=== PATIENT | female | born 1995 | race Caucasian/White ===

== ENCOUNTER 2017-01-25 02:06 | Emergency (ER) | payer OTHER ==
--- NOTE | 2017-01-25 02:51 | ED NURSING NOTES ---
Clinical Report - Nurses [facility] [address] [place] [place] [address] 01/25/2017 2:10 Patient: VALE MONTERO TRIAGE Acuity: LEVEL 4. Chief Complaint: SKIN RASH. Alert. JOI COMA SCORE: [place] Coma Scale: 15- eyes open spontaneously (4); best verbal response- oriented x 4 (5); best motor response- obeys commands (6). --02:25 Parker Frazier R.N. 02:18 01/25/17. BP: 121/66. HR: 75. RR: 20 (regular and unlabored). O2 saturation: 100% on room air. Temp: 98.2 F (oral). Pain level now: 0/10. --02:25 Parker Frazier R.N. Weight: 97 kg stated. Height/Length: 68 inches Per Patient. BMI: 32.5. --02:21 Parker Frazier R.N. Medications LaMICtal Oral. --02:19 Parker Frazier R.N. Vitamins Oral. --02:19 Parker Frazier R.N. Allergies Benadryl. Klonidine. Triamenic. --02:18 Parker Frazier R.N. Bactrim. --02:19 Parker Frazier R.N. Penicillin. Severe (Apnea) --02:19 Parker Frazier R.N. The following entry was struck and corrected by Parker Frazier R.N., 02:19 (01/25/17) Reason for correction - other(correction). <<STRICKEN ENTRY-- Penicillin. --02:19 Parker Frazier R.N. --END STRIKE>>. History Reported as generalized in location. Onset. (Febuary). It is described as itchy. Not painful. PAST MEDICAL HX: Last normal menstrual period- 09/17/16. Currently : 19 weeks. SOCIAL HX: Heavy tobacco smoker (cigarette)- 1 pack per day. No alcohol use or drug use. ( Denies HI/SI, states that she feels safe at home). SELF HARM ASSESSMENT: A self harm assessment was performed. FALL RISK ASSESSMENT: Fall risk assessment completed. No fall risk identified. NUTRITIONAL RISK ASSESSMENT: The nutritional risk assessment revealed no deficiencies. FUNCTIONAL ASSESSMENT: Functional assessment: no impairments noted. LEARNING NEEDS ASSESSMENT: The learning needs assessment revealed no barriers. --02:25 Parker Frazier R.N. PROBLEMS: Bipolar Disorder. LNMP - Last Normal Menstrual Period. --02: Parker Frazier R.N. ADDITIONAL SURGERIES: Oral Surgery. --02:20 Parker Frazier R.N. Interventions ID band on patient. To treatment room. --02: Parker Frazier R.N. PHYSICAL ASSESSMENT Ambulatory to room. ( Patient has small raised bumps on her stomach and hands, and is also generalized. She states having it worst on hands and trunk. Most of them are not reddened). GENERAL / NEURO / PSYCH: Alert. Oriented X 4. HEENT: Mucous membranes are pink. RESPIRATORY: Respirations not labored. CVS: Capillary refill less than 2 seconds. SKIN: Skin is intact, warm and dry. --02:28 Parker Frazier R.N. NURSING PROGRESS NOTES Patient gowned. Reassurance given. Two patient identifiers checked. Call light placed in reach. Side rails up x 1. Bed placed in lowest position. Brakes of bed on. Patient ready for evaluation- chart flagged. Patient waiting for evaluation. --02:28 Parker Frazier R.N. DISPOSITION / DISCHARGE Departure time: 03:04. Condition at departure: stable. No learning barriers present. Discharge instructions provided and reviewed with the patient. Reviewed warnings. Reviewed medication(s) side effects, precautions, dosing and course information. Prescription(s) given to the patient. Treatments reviewed. Reviewed referrals for followup. Patient verbalized understanding. Written instructions provided in Nepalese. The patient was discharged home and accompanied by family. She left the Emergency Department ambulatory and via private vehicle. Patient driving. --03:04 Parker Frazier R.N. 02:18 01/25/17. BP: 121/66. HR: 75. RR: 20 (regular and unlabored). O2 saturation: 100% on room air. Temp: 98.2 F (oral). Pain level now: 0/10. --03:04 Parker Frazier R.N. Locked/Released at 01/25/2017 3:04 by Parker Frazier R.N.
--- NOTE | 2017-01-25 02:51 | ED CLINICAL REPORT ---
Clinical Report - Physicians/Mid Levels [facility] [address] [place] [address] 01/25/2017 2:10 Patient: VALE MONTERO Time Seen: 02:28 Jan 25 2017. Arrived- By private vehicle. Historian- patient. CPT: ER phys charges level 3 (#[id number]). HISTORY OF PRESENT ILLNESS Chief Complaint: SKIN RASH. This started about 3 months [employer] and is still present. It is described as itchy. It has been generalized in location. No cause has been identified. Similar symptoms previously: None. Recent medical care: Not recently seen/assessed. REVIEW OF SYSTEMS No fever, chills, sore throat, cough or difficulty breathing. No hoarseness, lump in throat, enlarged lymph nodes, chest pain or abdominal pain. No nausea, diarrhea, difficulty with urination, genital lesions or joint pain. All systems otherwise negative, except as recorded above. PAST HISTORY : Last normal menstrual period- 09/17/16. Currently : 19 weeks. Bipolar Disorder. LNMP - Last Normal Menstrual Period. - ADDITIONAL SURGERIES: Oral Surgery. Medications: Vitamins Oral. LaMICtal Oral. Allergies: Bactrim. Benadryl. Klonidine. Penicillin. Severe (Apnea) Triamenic. SOCIAL HISTORY Heavy tobacco smoker (cigarette)- 1 pack per day. No alcohol use or drug use. ADDITIONAL NOTES The nursing notes have been reviewed. PHYSICAL EXAM Vital Signs: 01/25/2017 02:18 BP: 121/66. HR: 75. RR: 20. O2 saturation: 100%. Temp: 98.2 F. Pain level now: 0/10. Appearance: Alert. No acute distress. Eyes: Pupils equal, round and reactive to light. Conjunctivae and eyelids normal. ENT: Ears normal. Nose normal. Pharynx normal. Neck: Neck supple. CVS: Normal heart rate and rhythm. Heart sounds normal. Respiratory: No respiratory distress. Breath sounds normal. Chest nontender. Abdomen: Nontender. No organomegaly. Skin: No tender indurated area. No cellulitis. Rash present on the chest (upper). Extremities: Normal external inspection. Extremities nontender. Neuro: Oriented X 3. No motor deficit. No sensory deficit. PROGRESS AND PROCEDURES Course of Care: Rash distribution appears like a contact dermatitis. Patient/family counseled. Disposition: Discharged. Condition: stable. CLINICAL IMPRESSION Contact dermatitis. INSTRUCTIONS Warnings: Further evaluation is necessary. GENERAL WARNINGS: Return or contact your physician immediately if your condition worsens or changes unexpectedly, if not improving as expected, or if other problems arise. Your Current Medications: CONTINUE TAKING THE FOLLOWING MEDICATIONS: LaMICtal Oral. Vitamins Oral. Prescription Medications: Hydrocortisone 2.5% cream: apply to affected areas four times daily as needed for itching or rash, until symptoms improve. Dispense thirty (30) grams. No refills. Substitution is permissible. Follow-up: Follow up with your doctor in one week. Call for an appointment. Understanding of the discharge instructions verbalized by patient. (Electronically signed by Venkat Gregory MD 01/29/2017 21:00)
--- NOTE | 2017-01-25 02:51 | ED CLINICAL REPORT ---
Clinical Report - Physicians/Mid Levels [facility] [address] [place] [address] 01/25/2017 2:10 Patient: VALE MONTERO Time Seen: 02:28 Jan 25 2017. Arrived- By private vehicle. Historian- patient. CPT: ER phys charges level 3 (#[id number]). HISTORY OF PRESENT ILLNESS Chief Complaint: SKIN RASH. 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 It is described as itchy. It has been generalized in location. No cause has been identified. Similar symptoms previously: None. Recent medical care: Not recently seen/assessed. REVIEW OF SYSTEMS No fever, chills, sore throat, cough or difficulty breathing. No hoarseness, lump in throat, enlarged lymph nodes, chest pain or abdominal pain. No nausea, diarrhea, difficulty with urination, genital lesions or joint pain. All systems otherwise negative, except as recorded above. PAST HISTORY : Last normal menstrual period- 09/17/16. Currently : 19 weeks. Bipolar Disorder. LNMP - Last Normal Menstrual Period. - ADDITIONAL SURGERIES: Oral Surgery. Medications: Vitamins Oral. LaMICtal Oral. Allergies: Bactrim. Benadryl. Klonidine. Penicillin. Severe (Apnea) Triamenic. SOCIAL HISTORY Heavy tobacco smoker (cigarette)- 1 pack per day. No alcohol use or drug use. ADDITIONAL NOTES The nursing notes have been reviewed. PHYSICAL EXAM Vital Signs: 01/25/2017 02:18 BP: 121/66. HR: 75. RR: 20. O2 saturation: 100%. Temp: 98.2 F. Pain level now: 0/10. Appearance: Alert. No acute distress. Eyes: Pupils equal, round and reactive to light. Conjunctivae and eyelids normal. ENT: Ears normal. Nose normal. Pharynx normal. Neck: Neck supple. CVS: Normal heart rate and rhythm. Heart sounds normal. Respiratory: No respiratory distress. Breath sounds normal. Chest nontender. Abdomen: Nontender. No organomegaly. Skin: No tender indurated area. No cellulitis. Rash present on the chest (upper). Extremities: Normal external inspection. Extremities nontender. Neuro: Oriented X 3. No motor deficit. No sensory deficit. PROGRESS AND PROCEDURES Course of Care: Rash distribution appears like a contact dermatitis. Patient/family counseled. Disposition: Discharged. Condition: stable. CLINICAL IMPRESSION Contact dermatitis. INSTRUCTIONS Warnings: Further evaluation is necessary. GENERAL WARNINGS: Return or contact your physician immediately if your condition worsens or changes unexpectedly, if not improving as expected, or if other problems arise. Your Current Medications: CONTINUE TAKING THE FOLLOWING MEDICATIONS: LaMICtal Oral. Vitamins Oral. Prescription Medications: Hydrocortisone 2.5% cream: apply to affected areas four times daily as needed for itching or rash, until symptoms improve. Dispense thirty (30) grams. No refills. Substitution is permissible. Follow-up: Follow up with your doctor in one week. Call for an appointment. Understanding of the discharge instructions verbalized by patient. (Electronically signed by Venkat Gregory MD 01/29/2017 21:00)
--- NOTE | 2017-01-29 21:00 | ED MED RECONCILIATION SUMMARY ---
Patient: VALE MONTERO Medication Reconciliation Report [facility] VisitID: [id number] [address] [place] [address] 22y, F Registration Date/Time: 01/25/2017 Weight: 97.0 kg Height/Length: 68 in. BMI: 32.5 ALLERGIES: Bactrim, Benadryl, Klonidine, Penicillin, Triamenic The patient's Home Medications are listed below: CONTINUE TAKING THE FOLLOWING MEDICATIONS: LaMICtal Oral Vitamins Oral The source(s) of the original Home Medication information: Not obtained. The following Medications were given to the patient in the Emergency Department: None. The following Medications were prescribed to the patient: Hydrocortisone 2.5% cream: apply to affected areas four times daily as needed for itching or rash, until symptoms improve. Dispense thirty (30) grams. No refills. Substitution is permissible. -- Venkat Gregory MD
--- NOTE | 2017-01-29 21:00 | ED MAR SUMMARY ---
..... Medication Administration Record [facility] [address] [place], [place] [id number] Patient: VALE MONTERO Visit ID: [id number] 22y, F Weight: 97.0 kg Height/Length: 68 in BMI: 32.5 ALLERGIES: Bactrim, Benadryl, Klonidine, Triamenic, Penicillin
--- NOTE | 2017-01-29 21:00 | ED MAR SUMMARY ---
..... Medication Administration Record [facility] [address] [place], [place] [id number] Patient: VALE MONTERO Visit ID: [id number] 22y, F Weight: 97.0 kg Height/Length: 68 in BMI: 32.5 ALLERGIES: Bactrim, Benadryl, Klonidine, Triamenic, Penicillin
--- NOTE | 2017-01-29 21:00 | ED DISCHARGE INSTRUCTIONS ---
Patient: VALE MONTERO General Instructions [facility] VisitID: [id number] [place] [address] 22y, F Registration Date/Time: 01/25/2017 Contact dermatitis. INSTRUCTIONS Warnings: Further evaluation is necessary. GENERAL WARNINGS: Return or contact your physician immediately if your condition worsens or changes unexpectedly, if not improving as expected, or if other problems arise. Your Current Medications: CONTINUE TAKING THE FOLLOWING MEDICATIONS: LaMICtal Oral. Vitamins Oral. Prescription Medications: Hydrocortisone 2.5% cream: apply to affected areas four times daily as needed for itching or rash, until symptoms improve. Dispense thirty (30) grams. No refills. Substitution is permissible. Follow-up: Follow up with your doctor in one week. Call for an appointment. Understanding of the discharge instructions verbalized by patient. ADDITIONAL INFORMATION Dermatitis (Non-Specific) Dermatitis is an inflammation of the skin. The exact cause of your rash is not certain. However, this rash does not appear to be an infection or contagious illness. Taking care of the rash at home should help relieve your symptoms. Home Care: Keep the areas of rash clean by washing it daily. This also helps to keep the skin moist. Use a neutral pH soap such as Dove or Lever 2000. Apply a moisturizing lotion after bathing to prevent dry skin. Avoid skin irritants (wool or silk clothing, grease, oils, some medicines, harsh soaps, and detergents). Wear absorbent, soft fabrics next to the skin rather than rough or scratchy materials. Unless another medicine was prescribed, you may use Hydrocortisone cream (which you can get without a prescription) to reduce the inflammation. Follow Up: Make an appointment with your doctor in the next 1 to 2 weeks if your symptoms do not improve with the above measures. Get Prompt Medical Attention if any of the following occur: Increasing area of redness or pain in the skin Yellow crusts or drainage from the rash Joint pain New rash that appears in other areas of the body Fever of 100.4F (38C) or higher, or as directed by your healthcare provider You have been given the following additional information: Dermatitis, Non-Specific (Electronically signed by Venkat Gregory MD 01/29/2017 21:00)
--- NOTE | 2017-01-29 21:00 | ED DISCHARGE INSTRUCTIONS ---
Patient: VALE MONTERO General Instructions [facility] VisitID: [id number] [place] [address] 22y, F Registration Date/Time: 01/25/2017 Contact dermatitis. INSTRUCTIONS Warnings: Further evaluation is necessary. GENERAL WARNINGS: Return or contact your physician immediately if your condition worsens or changes unexpectedly, if not improving as expected, or if other problems arise. Your Current Medications: CONTINUE TAKING THE FOLLOWING MEDICATIONS: LaMICtal Oral. Vitamins Oral. Prescription Medications: Hydrocortisone 2.5% cream: apply to affected areas four times daily as needed for itching or rash, until symptoms improve. Dispense thirty (30) grams. No refills. Substitution is permissible. Follow-up: Follow up with your doctor in one week. Call for an appointment. Understanding of the discharge instructions verbalized by patient. ADDITIONAL INFORMATION Dermatitis (Non-Specific) Dermatitis is an inflammation of the skin. The exact cause of your rash is not certain. However, this rash does not appear to be an infection or contagious illness. Taking care of the rash at home should help relieve your symptoms. Home Care: Keep the areas of rash clean by washing it daily. This also helps to keep the skin moist. Use a neutral pH soap such as Dove or Lever 2000. Apply a moisturizing lotion after bathing to prevent dry skin. Avoid skin irritants (wool or silk clothing, grease, oils, some medicines, harsh soaps, and detergents). Wear absorbent, soft fabrics next to the skin rather than rough or scratchy materials. Unless another medicine was prescribed, you may use Hydrocortisone cream (which you can get without a prescription) to reduce the inflammation. Follow Up: Make an appointment with your doctor in the next 1 to 2 weeks if your symptoms do not improve with the above measures. Get Prompt Medical Attention if any of the following occur: Increasing area of redness or pain in the skin Yellow crusts or drainage from the rash Joint pain New rash that appears in other areas of the body Fever of 100.4F (38C) or higher, or as directed by your healthcare provider You have been given the following additional information: Dermatitis, Non-Specific (Electronically signed by Venkat Gregory MD 01/29/2017 21:00)
--- NOTE | 2017-01-29 21:00 | ED MED RECONCILIATION SUMMARY ---
Patient: VALE MONTERO Medication Reconciliation Report [facility] VisitID: [id number] [address] [place] [address] 22y, F Registration Date/Time: 01/25/2017 Weight: 97.0 kg Height/Length: 68 in. BMI: 32.5 ALLERGIES: Bactrim, Benadryl, Klonidine, Penicillin, Triamenic The patient's Home Medications are listed below: CONTINUE TAKING THE FOLLOWING MEDICATIONS: LaMICtal Oral Vitamins Oral The source(s) of the original Home Medication information: Not obtained. The following Medications were given to the patient in the Emergency Department: None. The following Medications were prescribed to the patient: Hydrocortisone 2.5% cream: apply to affected areas four times daily as needed for itching or rash, until symptoms improve. Dispense thirty (30) grams. No refills. Substitution is permissible. -- Venkat Gregory MD
== END 2017-01-25 03:00 | disposition home or self-care (01) ==
LOC: ED SRH 02:06
DX: L25.9 Unspecified contact dermatitis, unspecified cause (principal); F17.210 Nicotine dependence, cigarettes, uncomplicated